=== PATIENT | female | born 1980 | race Caucasian/White ===

== ENCOUNTER 2025-08-12 14:51 | Outpatient (AMB) | payer OTHER, SELFPAY ==
--- NOTE | 2025-08-12 14:57 | A.OFFVIS_ITS ---
Vital Signs 08/12/25 14:59 Height 5 ft 2 in Weight 243 lb 9.773 oz BMI 44.6 BP 158/80 H Blood Pressure Location Lt brachial Position Sitting Pulse 105 H Pulse Source Pulse Oximeter Pulse Oximetry (%) 100 Oxygen Delivery Method Room Air Intake Visit Reasons: Obstructive sleep apnea [place] Required: No Accompanied by: Self / Same As Patient Allergies No Known Allergies Allergy (Verified 08/12/25 15:00) HPI Comments Details: The patient is here for pulmonary evaluation. The patient is a 45 year woman with known history of asthma in addition to sleep apnea. She had significant daytime drowsiness and she had a sleep study demonstrating sleep apnea. She was started on CPAP and she has done very well for many years. She gets her supplies from [facility]. The patient has been using a fullface mask. Right now AirTouch foam mask. However, she is getting irritation on the bridge of her nose. Is not opened up but is still getting uncomfortable. I did have an F40 available with a she can try in the meantime. Hypnosis small though she may need an F30 for an F30 I small to be able to cope with her small narrow nose. Her machine is also stating that is no longer working appropriately and her motors about 2 . Therefore, will request a replacement APAP for her at this time. As far as her breathing she does have a history of asthma. She does have a rescue inhaler but it is . Will make sure to send went to the pharmacy. In the system she does have an x-ray report from 2018 which demonstrates no acute disease. Right now she is doing well no additional imaging studies required at this time. The patient will start her new APAP and she will call me and let me know which mask she prefers. She is also up-to-date with her vaccines including her pneumonia vaccine. The patient will use her rescue inhaler as needed. If any issues arise she can always call for further recommendations otherwise follow-up in a year. [facility] Medical History (Updated 08/12/25 @ 20:41 by Efra Newton MD) Asthma MICHELLE on CPAP Social History (Updated 08/12/25 @ 15:03 by Adenike Pruitt CMA) Patient Tobacco Use Status: Former Tobacco user Review of Systems Const Reports weight loss Eyes Reports no additional complaints ENT Reports no additional complaints Card Denies chest pain Resp Reports cough and Reports wheezing GI Reports no additional complaints Musc Reports no additional complaints Skin/Breast Denies rash Neuro Reports no additional complaints Reese/Lymph Reports no additional complaints Aller/Immun Reports wheezing Physical Exam Vital Signs: Last Vital Signs Pulse 105 H 08/12/25 14:59 BP 158/80 H 08/12/25 14:59 Pulse Ox 100 08/12/25 14:59 Oxygen Delivery Method Room Air 08/12/25 14:59 BMI result Body Mass Index 44.6 Const General: comfortable HEENT Head: Yes normocephalic Neck Neck: Yes supple Chest Chest palpation & inspection: normal inspection of the chest Resp Effort & Inspection: normal respiratory effort Auscultation: clear to auscultation bilaterally Cardio Heart sounds: S1 normal heart sound present and S2 normal heart sound present GI Palpation (GI): Soft to palpation Skin General skin exam: no rashes or lesions noted Extrem General: No clubbing and No cyanosis Assessment & Plan Assessment & Plan (1) MICHELLE on CPAP: Code(s): G47.33 - Obstructive sleep apnea (adult) (pediatric); Z99.89 - Dependence on other enabling machines and devices Category: Medical (2) Asthma: Code(s): J45.909 - Unspecified asthma, uncomplicated Category: Medical Qualifiers: Asthma severity: mild Asthma persistence: intermittent Asthma complica tion type: uncomplicated Qualified Code(s): J45.20 - Mild intermittent asthma, uncomplicated Plan Needs a replacement APAP at this time continue APAP, need access to airview Fulface maskF20 hurting the nasal bridge, provided F40, consider F30 and F30i as well NCIOLE as needed F/U 1 yr Medications: New albuterol sulfate 90 mcg/actuation 2 inhalations inhalation Q6H PRN 18 grams 12RF shortness of breath or wheezing 30 days J44.9 - Chronic obstructive pulmonary disease, unspecified Coding Level of Care Code New Pt Level 4 (17040) Diagnoses MICHELLE on CPAP G47.33; Z99.89 Mild intermittent asthma without complication J45.20 Asthma severity: mild Asthma persistence: intermittent Asthma complication type: uncomplicated Time Spent (min) 36
[2025-08-12 14:59] VITALS: BP 158/80; PULSE 105; O2SAT 100; BMI 44.6
--- OUTSIDE RECORDS SUMMARY | 2025-08-12 19:17 | XMS_ITS | Clinical Summary ---
Author Organization [address] [facility] Address [address] [place] [address] Phone Care Team Providers Care Traffic Director Name Role Phone Erendira Weiss MD Primary Care Prov ider Allergies No known active allergies Medications albuterol HFA (PROAIR HFA ; PROVENTIL HFA ; VENTOLIN HFA) 90 mcg/actuation inhaler Inhale 2 Puffs into the lungs every 6 hours as needed for Cough or Wheezing for up to 30 days. 04/09/20 19 Active medical supply, miscellaneous (MISCELLANEOUS MEDICAL SUPPLY MISC) CPAP Historical (HISTORICAL CPAP) Inhale into the lungs. Active MULTIVITAMIN ORAL Take 1 Tab by mouth. Active BD Ultra-Fine Mini Pen Needle 31 gauge x 3/16 needle Use to administer insulin once every evening 100 each 2 08/19/20 24 Active freestyle (FreeStyle Lancets) 28 gauge lancets Use to check fasting blood glucose once daily. 100 each 1 08/19/20 24 Active blood sugar diagnostic (FreeStyle Lite Strips) test strip USE TO CHECK BLOOD GLUCOSE 3 TIMES DAILY 11/03/19 25 Active cetirizine (ZyrTEC) 10 mg tablet Take 1 tablet (10 mg total) by mouth 1 (one) time each day. Active insulin glargine (LANTUS SoloStar) 100 unit/mL (3 mL) injection pen Inject 15 Units under the skin at bedtime. 06/30/20 25 Active semaglutide (OZEMPIC) 1 mg/dose (4 mg/3 mL) injection pen Inject 1 mg under the skin every 7 (seven) days. 3 mL 2 06/30/20 25 025 Active metFORMIN (GLUCOPHAGE) 500 mg tablet TAKE 2 TABLETS (1,000 MG TOTAL) BY MOUTH 1 (ONE) TIME EACH DAY WITH BREAKFAST. 180 tablet 07/23/20 25 026 Active norethindrone (ANTONY,BARBARA,HE ATHER,MICRONOR) 0.35 mg tablet TAKE 1 TABLET BY MOUTH 1 TIME EACH DAY. 84 tablet 3 07/30/20 25 Active lisinopriL (PRINIVIL,ZESTRI L) 10 mg tablet TAKE 1 TABLET BY MOUTH EVERY DAY 90 tablet 1 08/12/20 25 Active norethindrone (ANTONY,BARBARA,HE ATHER,MICRONOR) 0.35 mg tablet Take 1 tablet (0.35 mg total) by mouth 1 (one) time each day. 28 tablet 11 09/03/20 24 025 Discontinued lisinopriL (PRINIVIL,ZESTRI L) 10 mg tablet TAKE 1 TABLET BY MOUTH 1 TIME EACH DAY. 90 tablet 1 02/18/20 25 025 Discontinued metFORMIN (GLUCOPHAGE) 500 mg tablet Take 2 tablets (1,000 mg total) by mouth 1 (one) time each day with breakfast. 180 each 04/28/20 25 025 Discontinued Active Problems Problem Noted Date Diagnosed Date Hyperlipidemia 02/19/2025 Assessment & Plan (06/30/2025 8:59 AM EDT): Last LDL 116. Not on medications at this time. Working on lifestyle modifications. Pending to start statin to reduce ASCVD risk. Assessment & Plan (02/19/2025 9:41 AM EDT): Last LDL 116. Not on medications at this time. Will recheck a lipid panel before her next physical in March. Patient agrees to start statin medication if LDL is above 70. Healthy diet and regular exercise were discussed today. Type 2 diabetes mellitus wit h hyperglycemia, without long-term current use of insulin ([facility] V24, [facility] V28) 08/19/2024 Assessment & Plan (06/30/2025 8:59 AM EDT): Diabetes was diagnosed in July 2024 with an A1c of 11. Last A1c 7.6. Patient is currently on insulin 20 units at night, metformin 1000 mg, Ozempic 0.5mg. Will increase Ozempic to 1mg a week. Recheck A1C before next visit. Follow up in 3 months. We discussed about high protein, low carb diet and importance of regular exercise and weight lifting to preserve muscle mass. Orders: Hemoglobin A1c; Future Assessment & Plan (02/19/2025 9:41 AM EDT): Diabetes was diagnosed in July 2024 with an A1c of 11. Last A1c in November was 8. Patient is currently on insulin units at night, metformin 500 mg. Will increase the dose of metformin to 1000 mg daily, will recheck a new A1c today. Patient might be a good candidate for GLP-1. We discussed about that, will consider at next appointment. Orders: Hemoglobin A1c; Future Lipid panel with reflex to direct LDL; Future Basic metabolic panel; Future Microalbumin creatinine urine ratio; Future Assessment & Plan (11/24/2024 6:38 PM EST): Recent diagnosis of DM. A1C 11 in July, started on Glargine 20 units at night. Orders: Hemoglobin A1c; Future Lipid panel with reflex to direct LDL; Future Primary hypertension 08/19/2024 Assessment & Plan (06/30/2025 8:59 AM EDT): Hypertension is well-controlled. Today 123/71 Continue lisinopril 10 mg. Assessment & Plan (02/19/2025 9:41 AM EDT): Hypertension is well-controlled. Today 139/85. Continue lisinopril 10 mg. Assessment & Plan (11/24/2024 6:38 PM EST): HTN is well controlled on Lisinopril 10mg. Encouraged to follow a low salt diet and exercise regularly. Morbid obesity with BMI of 4 5.0-49.9, adult ([facility] V24, [facility] V28) 07/23/2024 Assessment & Plan (06/30/2025 8:59 AM EDT): As above. BMI 46.3. She has lost 10 pounds since March. 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 Mcclendon). Obstructive sleep apnea 08/17/2010 Overview (07/23/2024): Cpap order faxed to [facility] 09/20/17 [facility] History of pneumonia 10/03/2008 Encounters Date Type Department Care Team Description 06/30/2025 8:30 AM EDT Office Visit Adult Medicine [address] [phone] Erendira Weiss MD Type 2 diabetes mellitus with hyperglycemia, without long-term current use of insulin ([facility] V24, [facility] V28) (Primary Dx); Primary hypertension; Mixed hyperlipidemia; Morbid obesity with BMI of 45.0-49.9, adult ([facility] V24, [facility] V28) from Last 3 Months Immunizations Immunization Administration Dates Next Due HPV, Quadrivalent 11/28/2007,08/01/2007,05/28/20 07 Hepatitis B (Insxiom-G-Tfyec , Recombivax HB-Adult) 19yo and older 05/29/2002 Influenza trivalent, with preservative (Fluzone; Afluria) 6mo and older 08/18/2015,08/15/2014,08/07/2013,2010,08/01/2010,08/22/2007 Moderna SARS-CoV-2 COVID-19, mRNA, LNP-S, preservative free 08/14/2021,02/04/2021,12/18/2020 PPD Test 05/08/2002,02/23/2001,02/21/2001 Pneumococcal conjugate 20 va lent (Prevnar 20, PCV 20) 2mo and older 02/19/2025 Td Tetanus diptheria (Tdvax) 7yo and older 03/16/1999 Tdap Tetanus diptheria acell ular pertussis (Boostrix; Adacel) 7yo and older 03/19/2025,06/06/2014,03/18/2009 Surgical History Surgery Date Site/Laterality Comments COLPOSCOPY 2008 CERVIX BX CERVIX & ENDOCRV CURRETAGE WISDOM TOOTH EXTRACTION WRIST SURGERY 04/2015 Left [facility]OS ([facility]) Medical History Medical History Date Comments GDM (gestational diabetes mellitus) 04/14/2014 DX:GDM (gestational diabetes mellitus) Hypertension Morbid obesity with BMI of 4 0.0-44.9, adult (CMS/HCC V24, CMS/HCC V28) Family History Medical History Relation Name Comments No Known Problems Brother Cj Cirrhosis Father liver transplan t Diabetes Father Sarcoidosis Father lung Esophageal cancer Maternal Grandfather Lung cancer Maternal Grandfather + smoke r Brain Aneurysm Maternal Grandmother Arthritis Mother Benign breast cyst in female Mother Stroke Mother CA Unknown [Other] Paternal Grandfather Neurological Disorder Sister Jennifer Keenan Nerv e firing issue No Known Problems Romeo Garcia : 2013 Breast cancer Neg Hx Colon cancer Neg Hx Heart attack Neg Hx Ovarian cancer Neg Hx Relation Name Status Comments Brother Cj Alive Father Alive Maternal Grandfather Maternal Grandmother Mother Alive Paternal Grandfather Paternal Grandmother Sister Jennifer Keenan Alive Romeo Garcia Alive Social History Tobacco Use Types Packs/Day Years Used Date Smoking Tobacco: Former Cigarettes Q uit: 08/16/2007 Smokeless Tobacco: Never Tobacco Cessation:Counseling Given: Not Answered Alcohol Use Standard Drinks/Week Comments Yes 0 (1 standard drink = 0.6 oz pur e alcohol) holidays Housing Instability Answer Date Recorde d Are you worried that in the next 2 months you may not have stable housing? No 08/19/2024 Food Access & Nutrition Answer Date Rec orded Do you have access to a vari ety of food including fruits and vegetables? Yes 08/19/2024 Health Literacy Answer Date Recorded How often do you need to hav e someone help you when you read instructions, pamphlets, or other written material from your doctor or pharmacy? Never 08/19/2024 Caregiver: How often do you need to have someone help you when you read instructions, pamphlets, or other written material from your doctor or pharmacy? Not on file 08/19/2024 Financial Risk Answer Date Recorded How hard is it for you to pa y for the very basics like food, housing, medical care, and air conditioning / heating? Not very hard 08/19/2024 Transportation Answer Date Recorded Has the lack of transportati on kept you from meetings, work, or from getting things needed for daily living? No Has the lack of transportati on kept you from medical appointments or from getting medications? No 08/19/2024 Social Isolation Answer Date Recorded How often do you feel lonely or isolated from th ose around you? Never 08/19/2024 Food Risk Answer Date Recorded Within the past 12 months we worried whether our food would run out before we got money to buy more. Never true 08/19/2024 Within the past 12 months th e food we bought just didn't last and we didn't have money to get more. Never true 08/19/2024 Dependent Care Answer Date Recorded Do you need help finding or paying for care for your loved ones. For example, children's aide or elderly care for an older adult? No 08/19/2024 Education Answer Date Recorded Do you think completing more education or training, like finishing a GED, going to college, or learning a trade, would be helpful for you? N/A 08/19/2024 Employment and Income Answer Date Recor ded During the last four weeks, have you been actively looking for work? No 08/19/2024 Living Situation Answer Date Recorded What is your living situation? Unrecognized valu e 08/19/2024 Comments No Sex and Gender Information Value Date Recorded Sex Assigned at Female 08/12/2024 4:57 PM EDT Legal Sex Female 11:18 AM EST Gender Identity Female 08/12/2024 4:57 PM EDT Sexual Orientation Not on file Obstetrics History Para Term AB IAB SAB Ectopic Multiple Livin g Live Births 1 1 1 1 1 Date Outcome GA Total Labor Labor/2nd/3rd Weight Sex Type Anes PTL Marilee A1 A5 Name Clin 2013 Term 40w 1d 13h 46m/ 3884 g (137 oz) M Vag-S pont Epidur al Livin g 4 8 A Bertrand CN Delivery Location:[facility] Comments:nuchal cord X 1 tight, cut, meconium stained Last Filed Vital Signs Vital Sign Reading Time Taken Comments Blood Pressure 123/71 06/30/2025 8:28 AM EDT Pulse 85 06/30/2025 8:28 AM EDT Temperature 35.9 C (96.6 F) 06/30/2025 8:28 AM EDT Respiratory Rate 17 06/30/2025 8:28 AM EDT Oxygen Saturation 99% 06/30/2025 8:28 AM EDT Inhaled Oxygen Concentration - - Weight 111 kg (245 lb 6.4 oz) 06/30/2025 8:28 AM EDT Height 154.9 cm (5' 1 ) 06/30/2025 8:28 AM EDT Body Mass Index 46.37 06/30/2025 8:28 AM EDT Plan of Treatment Upcoming Encounters Date Type Department Care Team (Late st Contact Info) Description 09/18/2025 9:00 AM EST Office Visit Obstetrics and Gynecology - [address] [phone] Benita Cerna CNM [address] [place] [address] 09/29/2025 8:00 AM EST Office Visit Adult Medicine [address] [phone] Avelina Diaz PA [address] [place] [address] 03/24/2026 7:30 AM EDT Office Visit Adult Medicine [address] [phone] Erendira Weiss MD [address] [place] [address] Health Maintenance Due Date Last Done Comments Diabetes: Annual Retina Eye Exam 1991 COVID-19 Vaccine ( season) 2025 11/16/2023, 08/12/2022, 08/14/2021, Additional history exists Influenza Vaccine (#1) 2025 5, 08/15/2014, 08/07/2013, Additional history exists Diabetes: Annual Foot Exam 08/05/2025 08/05/2024 Social Influencers of Health Screening 08/19/2025 08/19/2024 Diabetes: Blood Sugar Control Test (HGBA1C) 08/23/2025 02/20/2025, 11/22/2024, 07/29/2024 Diabetes: Annual Urine Albumin-Creatinine Ratio (uACR) 03/17/2026 03/17/2025 Diabetes: Annual GFR (Glomerular Filtration Rate) 03/17/2026 03/17/2025, 07/29/2024, 10/12/2020 Hypertension/CHF/CAD Annual BMP Blood Test 03/17/2026 03/17/2025, 07/29/2024, 10/12/2020 Breast Cancer Screening 04/14/2027 04/14/2025 Cervical Cancer Screening: HPV 09/03/2029 09/03/2024, 08/18/2015 Cholesterol Screening (Lipid Panel) 03/17/2030 03/17/2025, 11/22/2024, 07/29/2024, Additional history exists DTaP,Tdap,and Td Vaccines (5 - Td or Tdap) 03/19/2035 03/19/2025, 06/06/2014, 03/18/2009, Additional history exists RSV Immunization Adult Patients (1 - 1-dose 75+ series) 01/28/2056 Hepatitis B Vaccines Discontinued 05/29/2002 HPV Vaccines Completed 11/28/2007, 07/16, 05/28/2007 Hepatitis C Screening Completed 05/19/2009 HIV Screening Completed 12/12/2013 Depression Screening Completed 02/12/2025 Pneumococcal Vaccine: Pediatrics (0 to 5 Years) and At-Risk Patients (6 to 49 Years) Discontinued 02/19/2025 HIB Vaccines Aged Out No longer eligi ble based on patient's age to complete this topic Hepatitis A Vaccines Aged Out No long er eligible based on patient's age to complete this topic IPV Vaccines Aged Out No longer eligi ble based on patient's age to complete this topic MMR Vaccines Aged Out No longer eligi ble based on patient's age to complete this topic Meningococcal ACWY Vaccine Aged Out N o longer eligible based on patient's age to complete this topic Meningococcal B Vaccine Aged Out No l onger eligible based on patient's age to complete this topic RSV Immunization Patients Under 20 months Aged Out No longer eligible based on patient's age to complete this topic Varicella Vaccines Aged Out No longer eligible based on patient's age to complete this topic Procedures Procedure Name Priority Date/Time Associated Diagnosis Comments MG MAMMO DIGITAL SCREENING W CORNELIUS BILAT Routine 04/14/2025 3:12 PM EDT Encounter for screening mammogram for malignant neoplasm of breast BASIC METABOLIC PANEL Routine 03/17/2025 8:20 AM EDT Type 2 diabetes mellitus with hyperglycemia, without long-term current use of insulin (CMS/HCC V24, CMS/HCC V28) LIPID PANEL WITH REFLEX TO DIRECT LDL Routine 03/17/2025 8:20 AM EDT Type 2 diabetes mellitus with hyperglycemia, without long-term current use of insulin (CMS/HCC V24, CMS/HCC V28) MICROALBUMIN CREATININE URINE RATIO Routine 03/17/2025 7:53 AM EDT Type 2 diabetes mellitus with hyperglycemia, without long-term current use of insulin (CMS/HCC V24, CMS/HCC V28) HEMOGLOBIN A1C Routine 02/20/2025 7:50 AM EDT Type 2 diabetes mellitus with hyperglycemia, without long-term current use of insulin (CMS/HCC V24, CMS/HCC V28) HPV WITH REFLEX GENOTYPE Routine 09/03/2024 11:45 AM EST Normal gynecologic examination HIV SCREENING Routine 12/12/2013 HEPATITIS C SCREENING Routine 05/19/2009 from Last 3 Months or Most Recently Relevant to Health Maintenance Results * MG Mammo Digital Screening w Cornelius bilat (04/14/2025 3:12 PM EDT) Anatomical Region Laterality Modality Breast Bilateral Mammography 04/16/2025 10:4 7 AM EDT Impressions 04/16/2025 10:53 AM EDT Benign. BI-RADS CATEGORY: 1 - NEGATIVE RECOMMENDATION: Screening bilateral mammogram is recommended in 1 year. Mammo Location: [facility], [address] [place] [address], [id number], . -------- FINAL REPORT -------- Dictated By: Dixie Singh Dictated Date: 04/16/2025 10:47 ET Assigned Physician: Dixie Singh Reviewed and Electronically Signed By: Dixie Singh Signed Date: 04/16/2025 10:53 ET Workstation ID: [id number] Transcribed By: Self Edit Transcribed Date: 04/16/2025 10:47 ET Narrative 04/16/2025 10:53 AM EDT CLINICAL: 45 years old, Female, baseline exam. COMPARISON: None. TECHNIQUE: Bilateral MLO and CC views were obtained digitally with 3-D mammogram (digital breast tomosynthesis). Computer-aided detection was utilized in evaluation of this exam (CAD). FINDINGS: There is no evidence of suspicious mass or architectural distortion. No worrisome calcifications are evident. There has been no significant change from prior exam(s). BREAST DENSITY: B - There are scattered areas of fibroglandular density. Procedure Note Dixie Singh MD - 04/16/2025 CLINICAL: 45 years old, Female, baseline exam. COMPARISON: None. TECHNIQUE: Bilateral MLO and CC views were obtained digitally with 3-Dmammogram (digital breast tomosynthesis). Computer-aided detection wasutilized in evaluation of this exam (CAD). FINDINGS: There is no evidence of suspicious mass or architectural distortion. Noworrisome calcifications are evident. There has been no significantchange from prior exam(s). BREAST DENSITY: B - There are scattered areas of fibroglandular density. IMPRESSION: Benign. BI-RADS CATEGORY: 1 - NEGATIVE RECOMMENDATION: Screening bilateral mammogram is recommended in 1 year. Mammo Location: [facility], [address] [place] [address], [phone], . -------- FINAL REPORT -------- Dictated By: Dixie Singh Dictated Date: 04/16/2025 10:47 ET Assigned Physician: Dixie Singh Reviewed and Electronically Signed By: Dixie Singh Signed Date: 04/16/2025 10:53 ET Workstation ID: [id number] Transcribed By: Self Edit Transcribed Date: 04/16/2025 10:47 ET us Tracy JARRELL IMG BI PROCEDURES Final Result * (ABNORMAL) Lipid panel with reflex to direct LDL (03/17/2025 8:20 AM EDT) Cholesterol 191 0 - 200 mg/dL LAB CHEMISTRY METHOD 03/17/2025 11:18 AM EDT [facility] Triglycerides 118 0 - 150 mg/dL LAB CHEMISTRY METHOD 03/17/2025 11:18 AM EDT [facility] HDL 54 >=40 mg/dL LAB CHEMISTRY METHOD 03/17/2025 11:18 AM EDT [facility] LDL Calculated 113(H) 0 - 100 mg/dL LAB CHEMISTRY METHOD 03/17/2025 11:18 AM T [facility] VLDL Cholesterol Adama 23.6 mg/dL LAB CHEMISTRY METHOD 03/17/2025 11:18 AM EDT [facility] Non HDL Chol. (LDL+VLDL) 137 <145 mg/dL LAB CHEMISTRY METHOD 03/17/2025 11:18 AM T [facility] Chol/HDL Ratio 3.5 0.0 - 4.4 LAB CHEMISTRY METHOD 03/17/2025 11:18 AM [facility] Blood Venous blood specimen / Unknown Venipuncture / Unknown 03/17/2025 8:20 AM EDT 03/17/2025 8:21 AM EDT us Erendira Weiss MD LAB BLOOD ORDERABL ES Final Result [facility] [address] [place] [address], * (ABNORMAL) Basic metabolic panel (03/17/2025 8:20 AM EDT) Sodium 140 133 - 145 mmol/L LAB CHEMISTRY METHOD 03/17/2025 11:18 AM [facility] Potassium 4.2 3.5 - 5.5 mmol/L LAB CHEMISTRY METHOD 03/17/2025 11:18 AM [facility] Chloride 108 96 - 110 mmol/L LAB CHEMISTRY METHOD 03/17/2025 11:18 AM [facility] CO2 26 21 - 32 mmol/L LAB CHEMISTRY METHOD 03/17/2025 11:18 AM [facility] Anion Gap 6 3 - 11 LAB CHEMISTRY METHOD 03/17/2025 11:18 AM [facility] Glucose 137(H) 70 - 100 mg/dL LAB CHEMISTRY METHOD 03/17/2025 11:18 AM [facility] BUN 17 5 - 25 mg/dL LAB CHEMISTRY METHOD 03/17/2025 11:18 AM [facility] Creatinine 0.67 0.50 - 1.10 mg/dL LAB CHEMISTRY METHOD 03/17/2025 11:18 AM [facility] eGFR 111 >=60 mL/min/1. 73m2 LAB CHEMISTRY METHOD 03/17/2025 11:18 AM [facility] Comment:Calculation based on the Chronic Kidney Disease Epidemiology Collaboration (CKD-EPI) equation refit without adjustment for race. BUN/Creatinine Ratio 25.4 LAB CHEMISTRY METHOD 03/17/2025 11:18 AM [facility] Calcium 8.9 8.5 - 10.5 mg/dL LAB CHEMISTRY METHOD 03/17/2025 11:18 AM EDT [facility] Blood Venous blood specimen / Unknown Venipuncture / Unknown 03/17/2025 8:20 AM EDT 03/17/2025 8:21 AM EDT Erendira Weiss MD LAB BLOOD ORDERABL ES Final Result Performing Organization Address [facility]/ZIP Co de Phone Number [facility] [address] [place] [address], [place] [phone] * Microalbumin creatinine urine ratio (03/17/2025 7:53 AM EDT) Creatinine, Urine 95.0 mg/dL LAB CHEMISTRY METHOD 03/17/2025 1:41 PM EDT [facility] Microalb, Ur 6.4 0.0 - 29.0 mg/L LAB CHEMISTRY METHOD 03/17/2025 1:41 PM EDT [facility] Microalb/Creat Ratio 7 <30 mg/g creat LAB CHEMISTRY METHOD 03/17/2025 1:41 PM EDT [facility] Urine Urine specimen obtained by clean catch procedure / Unknown Non-blood Collection / Unknown 03/17/2025 7:53 AM EDT 03/17/2025 7:53 AM EDT Erendira Weiss MD LAB URINE ORDERABL ES Final Result Performing Organization Address City/[facility]/ZIP Co de Phone Number [facility] [address] [place] [address], [place] [phone] * (ABNORMAL) Hemoglobin A1c (02/20/2025 7:50 AM EDT) Hemoglobin A1C 7.6(H) <6.5 % LAB CHEMISTRY METHOD 02/20/2025 1:54 PM EDT [facility] Mean Bld Glu Estim. 171 mg/dL LAB CHEMISTRY METHOD 02/20/2025 1:54 PM EDT [facility] Blood Venous blood specimen / Unknown Venipuncture / Unknown 02/20/2025 7:50 AM EDT 02/20/2025 7:50 AM EDT Erendira Weiss MD LAB BLOOD ORDERABL ES Final Result Performing Organization Address City/[facility]/ZIP Co de Phone Number [facility] [address] [place] [address], * HPV with reflex genotype (09/03/2024 11:45 AM EST) [facility] HPV Negative Negative LAB MICROBIOLOGY METHOD 09/05/2024 2:52 PM EST [facility] Brushing/Spatula Cervix uteri structure / Unknown 09/03/2024 11:45 AM EST 09/04/2024 10:40 AM EST Debra Dick CNM LAB MOLECULAR DIAGNOSTICS OR DERABLES Final Result [facility] [address] [place] [address], * HIV Screening (12/12/2013) HIV Screening abstracted Historical Provider HEALTH MAINTENANCE Final Result * Hepatitis C Screening (05/19/2009) Hepatitis C Screening abstracted Historical Provider HEALTH MAINTENANCE Final Result from Last 3 Months or Most Recently Relevant to Health Maintenance Insurance [facility] Care Teams Traffic Director Relationship Specialty Start Date End Date Erendira Weiss MD [address] [place] [phone] PCP - General Internal Medicine 08/03/22
== END 2025-08-12 15:31 | disposition home or self-care (01) ==
LOC: HO.HPS 14:52
PROVIDERS: PCP Internal Medicine; Visit Provider Hospitalist
DX: G47.33 Obstructive sleep apnea (adult) (pediatric) (principal); Z99.89 Dependence on other enabling machines and devices; J45.20 Mild intermittent asthma, uncomplicated
CPT/HCPCS: 99204